=== PATIENT | female | born 1995 | race Caucasian/White ===

== ENCOUNTER 2017-01-15 01:25 | Emergency (ER) | payer OTHER ==
[~2017-01-15 01:25] MED LIST: FANAPT2 MG PO; LEVOTHYROXINE0.05 M2 PO; LITHIUM CARBON300 M1 PO; LITHIUM CARBON300 MG PO; PRAZOSIN HYDROCH1 MG PO; SERTRALINE HYD100 MG PO; SYNTHROID0.05 MG PO; WELLBUTRIN XL300 M1 PO; ZOLOFT100 MG PO
[2017-01-15 02:05] LABS: BASOPHIL % 0.6 % (0-2); PLATELET COUNT 340 x10^3mcL (130-400)
[2017-01-15 02:11] LABS: CALCIUM 8.8 mg/dL (8.5-10.1); CARBON DIOXIDE 23.7 mmol/L (21-32); CHLORIDE SERUM 102 mmol/L (98-107); CREATININE SERUM 0.9 mg/dL (0.6-1.0); GFR1 > 60 mL/min; GLUCOSE SERUM 155 mg/dL (74-106); POTASSIUM SERUM 3.1 mmol/L (3.5-5.1); SODIUM SERUM 139 mmol/L (136-145)
[2017-01-15 02:15] LABS: ALBUMIN 3.5 g/dL (3.4-5.0); ALKALINE PHOSPHATASE 98 U/L (46-116); ALT/SGPT 81 U/L (14-59); AST/SGOT 51 U/L (15-37); BILIRUBIN TOTAL 0.14 mg/dL (0.20-1.00); RED CELL DISTRIBUTION WIDTH 15.1 % (11.5-14.5); TOTAL PROTEIN, SERUM 7.6 g/dL (6.4-8.2)
[2017-01-15 04:10] LABS: AMPHETAMINE QUAL UR POSITIVE (NEG <=1000)
[2017-01-15 05:04] VITALS: BP 105/64
== END 2017-01-15 05:04 | disposition home or self-care (01) ==
LOC: ED 01:25
PROVIDERS: Emergency Medicine
DX: S51.812A Laceration without foreign body of left forearm, initial encounter (principal); F32.9 Major depressive disorder, single episode, unspecified; X58.XXXA Exposure to other specified factors, initial encounter; Y93.89 Activity, other specified; Y99.8 Other external cause status; Y92.89 Other specified places as the place of occurrence of the external cause
CPT/HCPCS: 36415; 83880; G0480